=== PATIENT | female | born 1985 | race Two or more races ===

== ENCOUNTER 2023-11-25 09:42 | Emergency (ER) | payer MEDICAID, OTHER ==
[~2023-11-25] VITALS: Ht 165.1 cm; Wt 87.2 kg
[2023-11-25 10:40] VITALS: BP 157/94; PULSE 111; RESP 20; TEMP 98.1; O2SAT 99
[2023-11-25] MEDS ORDERED: IBUP-1454 PO (11:10)
[2023-11-25] MEDS ORDERED: PROM1SOL4 PO (11:10)
[2023-11-25] MEDS ORDERED: MONT-8 PO (11:10)
== END 2023-11-25 11:24 | disposition home or self-care (01) ==
LOC: ER 09:42
DX: J06.9 Acute upper respiratory infection, unspecified (principal)

== ENCOUNTER 2024-02-25 17:27 | Emergency (ER) | payer MEDICAID ==
[~2024-02-25] VITALS: Ht 160 cm; Wt 91.7 kg
[~2024-02-25 17:27] MED LIST: IBUP-1454 PO; MONT-8 PO; PROM1SOL4 PO
[2024-02-25 18:25] VITALS: BP 167/78; PULSE 76; RESP 19; TEMP 98.3; O2SAT 98
[2024-02-25] MEDS: IBUPROFEN 600 MG TAB PO ONE (18:46)
== END 2024-02-25 19:15 | disposition home or self-care (01) ==
LOC: ER 17:27
DX: J06.9 Acute upper respiratory infection, unspecified (principal); I10 Essential (primary) hypertension; Z79.899 Other long term (current) drug therapy